=== PATIENT | female | born 2005 | race African-American/Black ===

== ENCOUNTER 2025-05-24 10:05 | Inpatient (IN) | payer MEDICAID ==
[~2025-05-24] VITALS: Ht 162.6 cm; Wt 43.1 kg
[2025-05-24 10:07] VITALS: O2SAT 100
[2025-05-24] MEDS ORDERED: LACTATED RINGERS 1,000 ML IV SCH (10:15)
[2025-05-24 10:28] LABS: BASOPHILS % 0.5 % (0.0-2.0); EOSINOPHILS % 1.7 % (0.0-5.0); HEMATOCRIT. 33.4 % (36.0-48.0); HEMOGLOBIN. 10.5 g/dL (12.0-16.0); LYMPHOCYTES % 32.0 % (20.0-50.0); MEAN PLATELET VOLUME 9.7 fl (7.4-10.4); MONOCYTES % 5.2 % (2.0-8.0); NEUTROPHILS % 60.6 % (40.0-76.0); PLATELET 301 x1000/uL (130-400); RED BLOOD CELL COUNT 3.81 mill/uL (4.2-5.4); RED CELL DISTRIBUTION WIDTH 17.0 % (11.6-14.6)
[2025-05-24 10:42] LABS: CREATININE 1.0 mg/dL (0.6-1.0); UREA NITROGEN BLOOD 10 mg/dL (9-23)
[2025-05-24 10:44] LABS: ASPARTATE AMINOTRANSFERASE 21 IU/L (<34); BILIRUBIN TOTAL 0.5 mg/dL (0.1-1.0); PROTEIN TOTAL 6.8 g/dL (6.0-8.3)
[2025-05-24 10:57] LABS: HCG SCREEN NEGATIVE
[2025-05-24] MEDS: ACETAMINOPHEN 325MG TABLET PO ONE (11:33)
[2025-05-24] MEDS: LEVETIRACETAM 500MG PREMIX 100 ML IV ONE ×2 (11:43→12:09)
[2025-05-24 12:45] VITALS: BP 111/78; PULSE 100; RESP 18; TEMP 36.3; TEMP 36.4; O2SAT 100
[2025-05-24] MEDS: ONDANSETRON HCL 4MG/2ML INJ IV PRN (14:36)
[2025-05-24] MEDS ORDERED: ONDANSETRON HCL 4MG/2ML INJ IV PRN (14:45)
[2025-05-24] MEDS ORDERED: ACETAMINOPHEN 325MG TABLET PO PRN (14:45)
[2025-05-24] MEDS ORDERED: IOHEXOL-350 100 ML BOTTLE ONE (15:22)
[2025-05-24 16:00] VITALS: BP 116/76; PULSE 94; RESP 17; TEMP 36.5; O2SAT 100
[2025-05-24 17:05] LABS: TRIGLYCERIDE 49.0 mg/dL (0-150)
[2025-05-24 17:06] LABS: LDL CHOLESTEROL 110.0 mg/dL (5-100)
[2025-05-24 20:00] VITALS: BP 96/56; PULSE 55; RESP 18; TEMP 36.6; O2SAT 100
[2025-05-24] MEDS: LEVETIRACETAM 500MG PREMIX 100 ML IV SCH (22:18)
[2025-05-25] VITALS: BP 96/51; PULSE 60; RESP 18; TEMP 37; O2SAT 100
[2025-05-25 04:00] VITALS: BP 108/52; PULSE 56; RESP 18; TEMP 36.7; O2SAT 100
[2025-05-25 08:00] VITALS: BP 98/53; PULSE 63; RESP 17; TEMP 36.4; O2SAT 100
[2025-05-25 08:15] LABS: BASOPHILS % 0.9 % (0.0-2.0); EOSINOPHILS % 1.3 % (0.0-5.0); HEMATOCRIT. 32.7 % (36.0-48.0); HEMOGLOBIN. 10.1 g/dL (12.0-16.0); LYMPHOCYTES % 26.0 % (20.0-50.0); MEAN PLATELET VOLUME 10.0 fl (7.4-10.4); MONOCYTES % 6.9 % (2.0-8.0); NEUTROPHILS % 64.9 % (40.0-76.0); PLATELET 281 x1000/uL (130-400); RED BLOOD CELL COUNT 3.79 mill/uL (4.2-5.4); RED CELL DISTRIBUTION WIDTH 17.1 % (11.6-14.6)
[2025-05-25 08:40] LABS: CREATININE 0.8 mg/dL (0.6-1.0)
[2025-05-25 08:41] LABS: UREA NITROGEN BLOOD 6 mg/dL (9-23)
[2025-05-25] MEDS: PANTOPRAZOLE SODIUM 40 MG/VIAL IV SCH (09:00)
[2025-05-25 11:39] LABS: *AMPHETAMINES SCREEN URINE NEGATIVE (NEGATIVE); *BARBITURATES SCREEN URINE NEGATIVE (NEGATIVE); *BENZODIAZEPINES SCREEN URINE NEGATIVE (NEGATIVE); *COCAINE SCREEN URINE NEGATIVE (NEGATIVE); CANNABINOID URINE SCREEN PRESUMPTIVE POSITIVE (NEGATIVE); ECSTASY MDMA SCREEN URINE NEGATIVE (NEGATIVE); METHADONE URINE SCREEN NEGATIVE (NEGATIVE); OPIATES URINE SCREEN NEGATIVE (NEGATIVE); PHENCYCLIDINE URINE SCREEN NEGATIVE (NEGATIVE)
[2025-05-25 12:00] VITALS: BP 94/46; PULSE 60; RESP 17; TEMP 36.5; O2SAT 100
[2025-05-25 16:00] VITALS: BP 95/50; PULSE 67; RESP 18; TEMP 36.6; O2SAT 98
[2025-05-25 20:15] VITALS: BP_SYST 87; BP_SYST 88; BP_DIAS 53; BP_DIAS 54; PULSE 57; RESP 18; TEMP 36.4; O2SAT 95
[2025-05-25] MEDS: MIDODRINE HCL 5MG TABLET PO PRN (20:40)
[2025-05-26] VITALS: BP 135/59; PULSE 60; RESP 17; TEMP 36.7; O2SAT 99
[2025-05-26 04:00] VITALS: BP 94/53; PULSE 52; RESP 18; TEMP 36.8; O2SAT 99
[2025-05-26 08:00] VITALS: BP_SYST 62; BP_SYST 75; BP_DIAS 29; BP_DIAS 38; PULSE 56; RESP 17; TEMP 36.7; O2SAT 98
[2025-05-26 08:10] LABS: BASOPHILS % 0.9 % (0.0-2.0); EOSINOPHILS % 2.1 % (0.0-5.0); HEMATOCRIT. 31.8 % (36.0-48.0); HEMOGLOBIN. 10.1 g/dL (12.0-16.0); LYMPHOCYTES % 26.6 % (20.0-50.0); MEAN PLATELET VOLUME 10.2 fl (7.4-10.4); MONOCYTES % 8.8 % (2.0-8.0); NEUTROPHILS % 61.6 % (40.0-76.0); PLATELET 295 x1000/uL (130-400); RED BLOOD CELL COUNT 3.77 mill/uL (4.2-5.4); RED CELL DISTRIBUTION WIDTH 16.4 % (11.6-14.6)
[2025-05-26 08:31] LABS: CREATININE 0.8 mg/dL (0.6-1.0)
[2025-05-26 08:32] LABS: UREA NITROGEN BLOOD 7 mg/dL (9-23)
[2025-05-26 12:00] VITALS: BP 97/56; PULSE 60; RESP 16; TEMP 36.8; O2SAT 98
[2025-05-26 16:00] VITALS: BP 97/60; PULSE 56; RESP 16; TEMP 36.8; O2SAT 100
[2025-05-26] MEDS ORDERED: LEVE-20 MT (16:35)
[2025-05-26 17:04] VITALS: BP 97/60; PULSE 60; TEMP 97.4
== END 2025-05-26 18:13 | disposition home or self-care (01) | DRG 53 ==
LOC: ER 10:05 → EDBEDREQ 10:16 → 6WST 11:14 → EDBEDREQ 11:27 → ENRESERV 11:33
PROVIDERS: ADMIT Internal Medicine; ATTEND Internal Medicine
DX: R56.9 Unspecified convulsions (principal); D64.9 Anemia, unspecified; F10.90 Alcohol use, unspecified, uncomplicated; Q27.9 Congenital malformation of peripheral vascular system, unspecified
CPT/HCPCS: 36415; 70496; 70498; 70551; 80048; 80053; 80061; 80305; 84703; 85025; 93005; 99291; A4606; J1953; J2405; J2470; Q9967